=== PATIENT | male | born 1940 | race Hispanic/Latino ===

== ENCOUNTER 2017-05-01 01:30 | Emergency (ER) | payer MEDICARE ==
[2017-05-01 01:51] VITALS: BMI 26.2
--- NOTE | 2017-05-01 02:06 | ED PDOC ---
HPI: General Adult Time Seen by Provider: 05/01/17 01:46 Chief Complaint (Nursing): Chest Pain Chief Complaint (Provider): Constipation History Per: Patient History/Exam Limitations: no limitations Onset/Duration Of Symptoms: Days (x1) Current Symptoms Are (Timing): Gone Now Additional History Per: Family Additional Complaint(s): Lyndon Montiel is a 77 y/o male who was brought to the ED after he became pale and diaphoretic while attempting a bowel movement. Patient notes he felt his abdomen was distended earlier, and he subsequently had 3 consecutive bowel movements. While having the third bowel movement, his noticed he became pale. Patient states symptoms have completely resolved. He denies any chest pain, nausea, vomiting, or shortness of breath. PMD: Provider NAIMA Past Medical History Reviewed: Historical Data, Nursing Documentation, Vital Signs Vital Signs: Last Vital Signs Temp 97.6 F 05/01/17 02:10 Pulse 92 H 05/01/17 03:47 Resp 18 05/01/17 03:41 BP 124/72 05/01/17 03:47 Pulse Ox 98 05/01/17 03:41 - Medical History PMH: CAD, HTN, Hyperlipidemia Denies: HIV, Chronic Kidney Disease - Surgical History Surgical History: Appendectomy, Coronary Stent (x1) - Family History Family History: States: No Known Family Hx - Social History Current smoker - smoking cessation education provided: No Alcohol: None Drugs: Denies - Home Medications Home Medications: Ambulatory Orders Medication Instructions Recorded Aspirin [Aspirin EC] 81 mg PO DAILY 01/18/15 Lisinopril [Zestril] 5 mg PO DAILY 01/18/15 Multivitamin [Multi-Vitamin Daily] 1 tab PO DAILY 11/20/15 - Allergies Allergies/Adverse Reactions: Allergies Allergy/AdvReac Type Severity Reaction Status Date / Time No Known Allergies Allergy Verified 11/20/15 13:00 Review of Systems ROS Statement: Except As Marked, All Systems Reviewed And Found Negative Cardiovascular: Positive for: Other (Diaphoresis, Pallor). Negative for: Chest Pain Respiratory: Negative for: Shortness of Breath Gastrointestinal: Positive for: Constipation. Negative for: Nausea, Vomiting Physical Exam - Reviewed Nursing Documentation Reviewed: Yes Vital Signs Reviewed: Yes - Physical Exam Appears: Positive for: Non-toxic, No Acute Distress Head Exam: Positive for: ATRAUMATIC, NORMOCEPHALIC Skin: Positive for: Normal Color, Warm, Dry. Negative for: Pallor Eye Exam: Positive for: EOMI, Normal appearance, PERRL Neck: Positive for: Normal, Painless ROM, Supple Cardiovascular/Chest: Positive for: Regular Rate, Rhythm. Negative for: Murmur Respiratory: Positive for: Normal Breath Sounds. Negative for: Accessory Muscle Use, Respiratory Distress Gastrointestinal/Abdominal: Positive for: Normal Exam, Soft. Negative for: Tenderness Back: Positive for: Normal Inspection. Negative for: L CVA Tenderness, R CVA Tenderness, Vertebral Tenderness Extremity: Positive for: Normal ROM, Capillary Refill (< 2 sec). Negative for: Pedal Edema, Deformity Neurologic/Psych: Positive for: Alert, Oriented. Negative for: Motor/Sensory Deficits - Laboratory Results Result Diagrams: 05/01/17 02:11 05/01/17 02:48 - ECG ECG: Positive for: Interpreted By Me, Viewed By Vt ECG Rhythm: Positive for: Sinus Rhythm, Nonspecific Changes (ST) Rate: 61 - Radiology X-Ray: Interpreted by Me, Viewed By Vt X-Ray Interpretation: No Acute Disease Medical Decision Making Medical Decision Making: Time: 1:50 Initial Impression: 77 year old male brought for evaluation of episode of diaphoresis and pallor in setting of strenuous bowel movement Initial Plan: --EKG --CMP --Troponin I --CBC w/ differentials --PTT --Prothrombin time --Chest x-ray --Pending reevaluation EKG shows normal sinus rhythm at [address] changes. Labs reviewed and revealed no clinically significant abnormalities. Chest x-ray is normal. Time: 3:39 Patient is medically stable for discharge home. Counseling was provided and all questions were answered regarding diagnosis and need for follow up with PMD. There is agreement to discharge plan. Return if symptoms persist or worsen. Scribe Attestation: Documented by Minerva Arellano, acting as a scribe for Fred Stokes MD Provider Scribe Attestation: All medical record entries made by the Scribe were at my direction and personally dictated by me. I have reviewed the chart and agree that the record accurately reflects my personal performance of the history, physical exam, medical decision making, and the department course for this patient. I have also personally directed, reviewed, and agree with the discharge instructions and disposition. Disposition - Clinical Impression Clinical Impression: Vagal reaction - Patient ED Disposition Is Patient to be Admitted: No Counseled Patient/Family Regarding: Studies Performed, Diagnosis, Need For Followup, Rx Given - Disposition Referrals: Papo Biggs MD [Primary Care Provider] - Disposition: Routine/Home Disposition Time: 03:39 Condition: STABLE Forms: [facility] (Afghan)
[2017-05-01 02:12] VITALS: RESP 18; TEMP 97.6; O2SAT 98
[2017-05-01 02:15] LABS: BASO # 0.1 K/uL (0.0-0.2); BASO % 0.6 % (0.0-2.0); EOS # 0.1 K/uL (0.0-0.7); EOS % 1.6 % (0.0-4.0); HEMATOCRIT 48.8 % (35.0-51.0); LYMPH # 1.6 K/uL (1.0-4.3); LYMPH % 19.7 % (20.0-40.0); MEAN CELL VOLUME 95.1 fl (80.0-94.0); MEAN CORPUSCULAR HEMOGLOBIN 31.7 pg (27.0-31.0); MEAN CORPUSCULAR HGB CONC 33.3 g/dL (33.0-37.0); MEAN PLATELET VOLUME 9.7 fl (7.2-11.7); MONO # 0.5 K/uL (0.0-0.8); MONO % 6.3 % (0.0-10.0); NEUT # 5.8 K/uL (1.8-7.0); NEUT % 71.8 % (50.0-75.0); NRBC % 0.1 % (0.0-0.0); RED CELL DISTRIBUTION WIDTH 13.3 % (11.5-14.5); WHITE BLOOD COUNT 8.1 K/uL (4.8-10.8)
[2017-05-01 03:05] LABS: ALB/GLOB RATIO 1.4 (1.0-2.1); ALKALINE PHOSPHATASE 53 U/L (38-126); ALT/SGPT 43 U/L (21-72); AST/SGOT 31 U/L (17-59); BILIRUBIN,TOTAL 0.4 mg/dl (0.2-1.3); BLOOD UREA NITROGEN 20 mg/dl (9-20); CALCIUM 8.4 mg/dL (8.4-10.2); CARBON DIOXIDE 25 mmol/L (22-30); CHLORIDE 100 mmol/L (98-107); GFR AFRICAN-AMERICAN > 60; GLUCOSE,RANDOM 136 mg/dL (75-110); POTASSIUM 4.1 MMOL/L (3.6-5.0); SODIUM 134 mmol/l (132-148); TOTAL PROTEIN 6.5 G/DL (6.3-8.2)
[2017-05-01 03:13] LABS: PARTIAL THROMBOPLASTIN TIME 25.3 Seconds (25.6-37.1)
[2017-05-01] MEDS ORDERED: Alum-Mag Hydrox-Simethicone Susp (30 mL) ONE (03:35)
[2017-05-01] MEDS ORDERED: Alum-Mag Hydrox-Simethicone Susp (30 mL) PO STA (03:35)
[2017-05-01 03:41] VITALS: BP 124/72
[2017-05-01 04:30] VITALS: PULSE 61
--- NOTE | 2017-05-01 09:52 | RAD ---
HISTORY: chest pain COMPARISON: Chest radiograph dated 11/20/2015 FINDINGS: LUNGS: No active pulmonary disease. PLEURA: No significant pleural effusion identified, no pneumothorax apparent. CARDIOVASCULAR: Normal. OSSEOUS STRUCTURES: Unchanged. VISUALIZED UPPER ABDOMEN: Normal. OTHER FINDINGS: None. IMPRESSION: No active disease.
--- NOTE | 2017-05-01 12:14 | CARD ---
APPROVED REPORT EKG Measurement Heart [id number] <Conclusion> Normal sinus rhythm Anteroseptal infarct, age undetermined Abnormal ECG
== END 2017-05-01 03:49 | disposition home or self-care (01) ==
LOC: H.ER 01:30
DX: R42 Dizziness and giddiness (principal); K59.00 Constipation, unspecified; E78.5 Hyperlipidemia, unspecified; I10 Essential (primary) hypertension; I25.10 Atherosclerotic heart disease of native coronary artery without angina pectoris; Z79.82 Long term (current) use of aspirin; Z95.5 Presence of coronary angioplasty implant and graft

== ENCOUNTER 2017-06-09 07:28 | Emergency (ER) | payer MEDICARE ==
[2017-06-09 07:37] VITALS: BMI 29.2
--- NOTE | 2017-06-09 07:41 | ED PDOC ---
HPI: Neurologic - General Time Seen by Provider: 06/09/17 07:31 Chief Complaint (Nursing): Weakness/Neurological Deficit Source: patient, family - History of Present Illness Timing/Duration: other (awaoke with sx noticed approx 40 minutes ago) Severity: moderate Associated Symptoms: slurred speech, weakness (right arm) Allergies/Adverse Reactions: Allergies No Known Allergies Allergy (Verified 11/20/15 13:00) Home Medications: Ambulatory Orders Aspirin [Aspirin EC] 81 mg PO DAILY 01/18/15 Lisinopril [Zestril] 5 mg PO DAILY 01/18/15 Dicyclomine [Bentyl] 10 mg PO BID 06/09/17 Additional Complaint(s): per pt awoke with slurred speech, right sided weakness no prev sx no trauma , states mild constipation that last 2 days cards damle. pt was last seen nml last night pt awoke and went to the bathroom but the noticed he had trouble walking, slurred speech he then went back to bed. the then reexamined and noticed right arm weakness and slurred speech and called ems, no prev sx NIHSS Stroke Scale - Date/Time Evaluation Performed Time Performed: 07:42 When Was NIHSS Performed: Baseline - How Severe is the Stroke Level of Consciousness: 0=Alert LOC to Questions: 0=Both comments correct LOC to commands: 0=Obeys both correctly Best Gaze: 0=Normal Visual: 0=No visual loss Facial: 2=Partial (lower face paralysis) Motor Arm - Left: 0=No drift Motor Arm - Right: 1=Drift noted before 10 sec Motor Leg - Left: 0=No drift Motor Leg - Right: 0=No drift Limb Ataxia: 0=Absent Sensory: 1=Mild to moderate loss Best Language: 1=Mild to moderate aphasia Dysarthia: 1=Mild to moderate slurring Extinction & Inattention (Neglect): 0=Normal, no object Score: 6 NIHSS Stroke Scale 2 - Date/Time Evaluation Performed Time Performed: 10:30 When Was NIHSS Performed: Re-evaluation - How Severe is the Stroke Level of Consciousness: 1=Drowsy LOC to Questions: 0=Both comments correct LOC to commands: 0=Obeys both correctly Best Gaze: 1=Partial gaze palsy Visual: 0=No visual loss Facial: 2=Partial (lower face paralysis) Motor Arm - Left: 0=No drift Motor Arm - Right: 3=No effort against gravity (falls immediately) Motor Leg - Left: 0=No drift Motor Leg - Right: 2=Falls before 5 sec Limb Ataxia: 0=Absent Sensory: 1=Mild to moderate loss Best Language: 2=Severe aphasia Dysarthia: 2=Severe, near unintelligible or worse Extinction & Inattention (Neglect): 0=Normal, no object Score: 14 Past Medical History Reviewed: Historical Data, Nursing Documentation, Vital Signs Vital Signs: Last Vital Signs Temp 97.5 F L 06/09/17 07:35 Pulse 75 06/09/17 07:35 Resp 18 06/09/17 07:35 BP 151/97 H 06/09/17 07:35 Pulse Ox 98 06/09/17 07:35 - Medical History PMH: CAD, HTN, Hyperlipidemia Denies: HIV, Chronic Kidney Disease - Surgical History Surgical History: Appendectomy, Coronary Stent (x1) - Family History Family History: States: Unknown Family Hx - Living Arrangements Living Arrangements: With Family - Social History Current smoker - smoking cessation education provided: No - Home Medications Home Medications: Ambulatory Orders Medication Instructions Recorded Aspirin [Aspirin EC] 81 mg PO DAILY 01/18/15 Lisinopril [Zestril] 5 mg PO DAILY 01/18/15 Dicyclomine [Bentyl] 10 mg PO BID 06/09/17 - Allergies Allergies/Adverse Reactions: Allergies Allergy/AdvReac Type Severity Reaction Status Date / Time No Known Allergies Allergy Verified 11/20/15 13:00 Review of Systems ROS Statement: Except As Marked, All Systems Reviewed And Found Negative Constitutional: Negative for: Fever, Chills Cardiovascular: Negative for: Chest Pain, Palpitations, Light Headedness Respiratory: Negative for: Cough, Shortness of Breath Gastrointestinal: Positive for: Constipation. Negative for: Nausea, Vomiting, Abdominal Pain Neurological: Positive for: Weakness, Change in Speech, Confusion, Altered Mental Status. Negative for: Incoordination, Headache, Dizziness Physical Exam - Reviewed Nursing Documentation Reviewed: Yes Vital Signs Reviewed: Yes - Physical Exam Appears: Positive for: In Acute Distress (mod) Head Exam: Positive for: ATRAUMATIC, NORMAL INSPECTION, NORMOCEPHALIC Eye Exam: Positive for: Normal appearance, EOMI, PERRL. Negative for: Periorbital swelling, Periorbital tenderness, Conjunctival injection, Scleral icterus Neck: Positive for: Normal, Painless ROM, Supple. Negative for: Decreased ROM, Limited ROM, Trachea Midline, Pain On Movement Of Neck Cardiovascular/Chest: Positive for: Regular Rate, Rhythm. Negative for: Chest Non Tender, Edema, Gallop, Murmur, Bradycardia, Tachycardia Respiratory: Positive for: Normal Breath Sounds. Negative for: Decreased Breath Sounds, Accessory Muscle Use, Rales, Rhonchi, Stridor, Wheezing, Respiratory Distress Pulses-Radial (L): 2+ Pulses-Radial (R): 2+ Gastrointestinal/Abdominal: Positive for: Normal Exam, Bowel Sounds, Soft. Negative for: Tenderness Back: Positive for: Normal Inspection. Negative for: L CVA Tenderness, R CVA Tenderness Extremity: Positive for: Normal ROM. Negative for: Tenderness, Pedal Edema, Calf Tenderness, Deformity, Swelling Neurologic/Psych: Positive for: Alert, cooperative manager II-XII, Oriented, Motor/Sensory Deficits (right sided arm weakness 4/5), Aphasia (mild). Negative for: Facial Droop - Laboratory Results Result Diagrams: 06/09/17 07:50 06/09/17 08:32 - ECG ECG: Positive for: Interpreted By Sd ECG Rhythm: Positive for: Normal QRS, Normal ST Segment, Sinus Rhythm (67), ST/ T Changes (twi in v2 through v6) O2 Sat by Pulse Oximetry: 98 Pulse Ox Interpretation: Normal - Radiology X-Ray: Interpreted by Sd X-Ray Interpretation: No Acute Disease - Progress ED Course And Treament: code stroke called within 5 mi nutes of arrival, called dr mack. pt not a tpa candidate due to unknown time of onset. 815am contacted neurological associated, advise cta and will call back with results. [address] estes neuorointervention agree's to transfer to [facility] for neuro intervention given the cta finding of an acute left sided mca thrombus, family agree;s with plan, pt tolerating oral secretions and his ariway those jhis sx are worsening. discussed with Dr barone pt to be and er to er transfer. Re-evaluation Time: 07:59 Condition: Improved - Critical Care Total Time (In Min): 60 Documented Critical Care: Time excludes all time spent performint seperately billable procedures Medical Decision Making Medical Decision Makin am cta revealed acute left mca stroke pt exam worsening here, per Dr macias will transport to [facility] er to er transfer for possible thrombectomy he will accept. discussed with dr still [phone] neurology as well. repeat nihss shows acute worsening discussed plans with family and they agree with plan. Disposition - Clinical Impression Clinical Impression: Acute ischemic left MCA stroke Counseled Patient/Family Regarding: Studies Performed, Diagnosis, Need For Followup - Disposition Disposition: Other Institution ([facility]) Disposition Time: 10:30 Condition: CRITICAL Forms: [facility] (Yoruba)
--- NOTE | 2017-06-09 08:02 | CT ---
EXAM: CT Head Without Intravenous Contrast EXAM DATE/TIME: 06/09/2017 7:36 AM CLINICAL HISTORY: 77 years old, male; Pain; Headache; Tension; Additional info: Code stroke TECHNIQUE: Axial computed tomography images of the head/brain without intravenous contrast. All CT scans at this facility use one or more dose reduction techniques, viz.: automated exposure control; ma/kV adjustment per patient size (including targeted exams where dose is matched to indication; i.e. head); or iterative reconstruction technique. Coronal and sagittal reformatted images were created and reviewed. COMPARISON: No relevant prior studies available. FINDINGS: Brain: Mild cerebellar and cerebral atrophy. No hemorrhage. No significant white matter disease. Ventricles: Unremarkable. No ventriculomegaly. Bones/joints: Unremarkable. No acute fracture. Soft tissues: Unremarkable. Sinuses: Unremarkable as visualized. No acute sinusitis. Mastoid air cells: Unremarkable as visualized. No mastoid effusion. IMPRESSION: No acute cerebral hemorrhage or edema.
[2017-06-09 08:08] LABS: BASO % 0.8 % (0.0-2.0); EOS # 0.3 K/uL (0.0-0.7); EOS % 5.2 % (0.0-4.0); HEMOGLOBIN 16.6 g/dL (12.0-18.0); LYMPH # 1.8 K/uL (1.0-4.3); LYMPH % 35.7 % (20.0-40.0); MEAN CELL VOLUME 94.4 fl (80.0-94.0); MEAN CORPUSCULAR HEMOGLOBIN 31.6 pg (27.0-31.0); MEAN CORPUSCULAR HGB CONC 33.5 g/dL (33.0-37.0); MEAN PLATELET VOLUME 9.5 fl (7.2-11.7); MONO # 0.4 K/uL (0.0-0.8); MONO % 8.4 % (0.0-10.0); NEUT # 2.5 K/uL (1.8-7.0); NEUT % 49.9 % (50.0-75.0); NRBC % 0.2 % (0.0-0.0); RBC 5.24 Mil/uL (4.40-5.90)
[2017-06-09 08:15] LABS: INR 1.1 (0.9-1.2); PARTIAL THROMBOPLASTIN TIME 28.9 Seconds (25.6-37.1); PROTHROMBIN TIME 12.1 Seconds (9.8-13.1)
--- NOTE | 2017-06-09 08:47 | CARD ---
APPROVED REPORT EKG Measurement Heart [id number] NV [id number] <Conclusion> Normal sinus rhythm Inferior infarct, age undetermined Anterior infarct, age undetermined Abnormal ECG
[2017-06-09 09:02] LABS: ALB/GLOB RATIO 1.3 (1.0-2.1); ALBUMIN 3.6 g/dL (3.5-5.0); ALT/SGPT 41 U/L (21-72); AST/SGOT 21 U/L (17-59); BLOOD UREA NITROGEN 16 mg/dl (9-20); CALCIUM 8.9 mg/dL (8.4-10.2); GFR AFRICAN-AMERICAN > 60; GFR NON-AFRICAN AMERICAN > 60; HDL CHOLESTEROL 35 MG/DL (30-70)
[2017-06-09 09:13] LABS: LDL CHOLESTEROL 92 mg/dL (0-129)
[2017-06-09 09:22] LABS: B-TYPE NATRIURETIC PEPTIDE 133 pg/ml (0-900)
[2017-06-09] MEDS ORDERED: Iodixanol 320 MG/ML 100 ML BOTTLE IV ONE (09:24)
[2017-06-09] MEDS ORDERED: Sodium Chloride 0.9% 50 ML IV ONE (09:24)
--- NOTE | 2017-06-09 10:46 | CT ---
PROCEDURE: CTA HEAD AND NECK WITH CONTRAST HISTORY: right sided weakness r/o large vessel thrombus COMPARISON: None available. TECHNIQUE: Initial noncontrast head CT was performed. Subsequently, CT angiogram of the head and neck were performed after the intravenous administration of 80 mL of Omnipaque 350. Contiguous 1.5mm thick images were obtained in the axial plane of the neck. 2-D coronal and sagittal MPR images were obtained. Imaging postprocessing was performed with 3-D images also obtained. A delayed contrast head CT was also obtained. This CT exam was performed using one or more of the following dose reduction techniques: Automated exposure control, adjustment of the mA and/or kV according to patient size, and/or use of iterative reconstruction technique. Contrast dose: 99 cc Visipaque 320 Radiation dose: Total exam DLP = 599.51 mGy-cm. FINDINGS: HEAD: Right: The intracranial internal carotid artery, and anterior and middle cerebral arteries are widely patent. Left: There is complete occlusion of the left middle cerebral artery about 5 mm distal to its origin. There is absent flow in the M2 segment and distal sylvian branches. The intracranial internal carotid artery and anterior cerebral artery arteries are widely patent. Posterior circulation: The visualized intracranial vertebral arteries, basilar artery and posterior cerebral arteries are widely patent. Ther is no endoluminal filling defect to suggest thrombus. There is no intracranial saccular aneurysm. There is no abnormal enhancement on the postcontrast CT. NECK: There is a 2 vessel aortic arch with common origin of the innominate and left common carotid artery is. There is no stenosis at the origins of the great vessels at the level of the aortic arch. Right Carotid: On the right, the common carotid, internal carotid and external carotid arteries are widely patent. There is no hemodynamically significant stenosis in the internal carotid arteries. Left Carotid: On the left, the common carotid, internal carotid and external carotid arteries are widely patent. There are minimal atherosclerotic calcifications in the left carotid bulb.There is no hemodynamically significant stenosis in the internal carotid arteries. The vertebral arteries are widely patent. The right vertebral artery is dominant, an anatomic variant. The visualized soft tissues of the neck are normal. The visualized brain and cervical spine are within normal limits. The lung apices are clear. IMPRESSION: 1. Complete occlusion of the left middle cerebral artery (M1 segment) about 5 mm distal to its origin with absent flow in the M2 segment and distal sylvian branches. 2. Bilateral intracranial internal carotid arteries, right middle cerebral artery, bilateral anterior cerebral arteries, posterior cerebral and vertebral arteries are widely patent. 3. No evidence of hemodynamically significant stenosis in the extracranial internal carotid arteries. 4. Patent bilateral cervical segments of vertebral arteries. The right vertebral artery is dominant, an anatomic variant. Critical findings were discussed with Dr. Luca Huber on 06/09/2017 at 10:35 a.m.
--- NOTE | 2017-06-09 11:40 | RAD ---
HISTORY: weak COMPARISON: 05/01/2017. FINDINGS: LUNGS: The lungs are clear. PLEURA: No significant pleural effusion identified, no pneumothorax apparent. CARDIOVASCULAR: Normal. OSSEOUS STRUCTURES: No significant abnormalities. VISUALIZED UPPER ABDOMEN: Normal. OTHER FINDINGS: None. IMPRESSION: No active pulmonary disease.
[2017-06-09 12:44] VITALS: BP 125/65; PULSE 71; RESP 16; TEMP 97.9
[2017-06-09 14:06] VITALS: O2SAT 98
== END 2017-06-09 12:00 | disposition short-term general hospital (02) ==
LOC: H.ER 07:28
DX: I63.512 Cerebral infarction due to unspecified occlusion or stenosis of left middle cerebral artery (principal); E78.5 Hyperlipidemia, unspecified; I25.10 Atherosclerotic heart disease of native coronary artery without angina pectoris; Z79.82 Long term (current) use of aspirin; Z95.5 Presence of coronary angioplasty implant and graft
CPT/HCPCS: 70450; 70496; 70498; 71045; 80053; 80061; 82948; 83036; 83880; 84484; 85025; 85610; 85730; 86850; 86900; 93005; 99285; Q9967

== ENCOUNTER 2017-08-14 09:46 | Emergency (ER) | payer MEDICARE ==
[2017-08-14 09:46] VITALS: BMI 26.2
[2017-08-14 10:18] VITALS: RESP 18; TEMP 97
--- NOTE | 2017-08-14 10:33 | ED PDOC ---
HPI: Neurologic - General Time Seen by Provider: 08/14/17 10:09 Chief Complaint (Nursing): Dizziness/Lightheaded - History of Present Illness Allergies/Adverse Reactions: Allergies No Known Allergies Allergy (Verified 11/20/15 13:00) Home Medications: Ambulatory Orders Aspirin [Aspirin EC] 81 mg PO DAILY 01/18/15 Lisinopril [Zestril] 5 mg PO DAILY 01/18/15 Dicyclomine [Bentyl] 10 mg PO BID 06/09/17 Ondansetron [Zofran] 4 mg PO Q8H PRN #6 tab 08/14/17 Additional Complaint(s): 77yo M with PMHx HLD, [place], CVA c/o dizziness, lightheadedness. started this AM, now improving. Tolerating PO. Denies facial droop, weakness, slurred speech, fall, vision change. No sick contacts, no recent illness. Recent CVA 06/2017 with Left MCA occlusion s/p thrombectomy at [facility]. Taking ASA, Plavix and statin. PCP: Dr. Hernandez Past Medical History Vital Signs: Last Vital Signs Temp 97 F L 08/14/17 10:09 Pulse 73 08/14/17 10:09 Resp 18 08/14/17 10:09 BP 154/80 H 08/14/17 10:09 Pulse Ox 97 08/14/17 10:09 - Medical History PMH: CAD, HTN, Hyperlipidemia Denies: HIV, Chronic Kidney Disease - Surgical History Surgical History: Appendectomy, Coronary Stent (x1) - Family History Family History: States: Unknown Family Hx - Home Medications Home Medications: Ambulatory Orders Medication Instructions Recorded Aspirin [Aspirin EC] 81 mg PO DAILY 01/18/15 Lisinopril [Zestril] 5 mg PO DAILY 01/18/15 Dicyclomine [Bentyl] 10 mg PO BID 06/09/17 Ondansetron [Zofran] 4 mg PO Q8H PRN #6 tab 08/14/17 - Allergies Allergies/Adverse Reactions: Allergies Allergy/AdvReac Type Severity Reaction Status Date / Time No Known Allergies Allergy Verified 11/20/15 13:00 Review of Systems ROS Statement: Except As Marked, All Systems Reviewed And Found Negative Neurological: Positive for: Dizziness Physical Exam - Reviewed Nursing Documentation Reviewed: Yes Vital Signs Reviewed: Yes - Physical Exam Appears: Positive for: Non-toxic, No Acute Distress Head Exam: Positive for: ATRAUMATIC, NORMAL INSPECTION Skin: Positive for: Warm, Dry Eye Exam: Positive for: EOMI, PERRL ENT: Positive for: Normal ENT Inspection. Negative for: Pharyngeal Erythema, Tonsillar Exudate Neck: Positive for: Normal, Painless ROM, Supple Cardiovascular/Chest: Positive for: Regular Rate, Rhythm, Chest Non Tender Respiratory: Positive for: Normal Breath Sounds. Negative for: Decreased Breath Sounds Gastrointestinal/Abdominal: Positive for: Soft Back: Positive for: Normal Inspection Extremity: Positive for: Normal ROM Lymphatic: Negative for: Adenopathy Neurologic/Psych: Positive for: Alert, pier master assistant II-XII, Oriented, Gait (WNL). Negative for: Motor/Sensory Deficits, Cerebellar Tests, Aphasia, Facial Droop Comments: NIHSS 0 - Laboratory Results Result Diagrams: 08/14/17 11:57 08/14/17 11:57 - ECG O2 Sat by Pulse Oximetry: 97 Medical Decision Making Medical Decision Makin DDx h/o CVA, [place] EKG no acute change CT head wo cont reassessment 1142 CT head wo cont NS 150cc/hr meclizine 12.5mg PO x1 CBC, BMP 1423 improved, dizziness resolved FU PCP Thursday Disposition - Clinical Impression Clinical Impression: Dizziness - Disposition Referrals: Papo Biggs MD [Family Provider] - Disposition Time: 14:23 Condition: STABLE Prescriptions: Ondansetron [Zofran] 4 mg PO Q8H PRN #6 tab PRN Reason: Nausea/Vomiting Instructions: Dizziness, Nonvertigo, (DC) Forms: [employer] (Swiss)
--- NOTE | 2017-08-14 11:12 | CT ---
PROCEDURE: CT HEAD WITHOUT CONTRAST. HISTORY: weakness COMPARISON: 06/09/2017 TECHNIQUE: Axial computed tomography images were obtained through the head/brain without intravenous contrast. Radiation dose: Total exam DLP = 849.56 mGy-cm. This CT exam was performed using one or more of the following dose reduction techniques: Automated exposure control, adjustment of the mA and/or kV according to patient size, and/or use of iterative reconstruction technique. FINDINGS: HEMORRHAGE: No intracranial hemorrhage. BRAIN: No mass effect or edema. Extensive encephalomalacia in the left frontal, temporal and parietal lobes all within MCA territory distribution, consistent with old left MCA infarct. This was not evident on prior CT examination of 06/09/2017, but is consistent with previously demonstrated left middle cerebral artery occlusion on CTA of 06/09/2017. There is no evidence of acute infarct. VENTRICLES: Unremarkable. No hydrocephalus. CALVARIUM: Unremarkable. PARANASAL SINUSES: Unremarkable as visualized. No significant inflammatory changes. MASTOID AIR CELLS: Unremarkable as visualized. No inflammatory changes. OTHER FINDINGS: None. IMPRESSION: Old large left MCA territory infarct. No evidence of acute infarct. No intracranial mass or hemorrhage.
[2017-08-14] MEDS ORDERED: Sodium Chloride 0.9% 500 ML IV ONE (11:45)
[2017-08-14 12:02] LABS: BASO % 0.6 % (0.0-2.0); EOS % 0.3 % (0.0-4.0); HEMOGLOBIN 16.3 g/dL (12.0-18.0); LYMPH # 0.6 K/uL (1.0-4.3); LYMPH % 8.4 % (20.0-40.0); MEAN CELL VOLUME 93.4 fl (80.0-94.0); MEAN CORPUSCULAR HEMOGLOBIN 31.6 pg (27.0-31.0); MEAN CORPUSCULAR HGB CONC 33.9 g/dL (33.0-37.0); MEAN PLATELET VOLUME 9.6 fl (7.2-11.7); MONO # 0.2 K/uL (0.0-0.8); NEUT % 87.7 % (50.0-75.0); NRBC % 0.1 % (0.0-0.0); PLATELET COUNT 204 K/uL (130-400); RBC 5.17 Mil/uL (4.40-5.90); RED CELL DISTRIBUTION WIDTH 13.5 % (11.5-14.5); WHITE BLOOD COUNT 6.8 K/uL (4.8-10.8)
[2017-08-14 12:15] LABS: BLOOD UREA NITROGEN 20 mg/dl (9-20); GFR AFRICAN-AMERICAN > 60; GFR NON-AFRICAN AMERICAN > 60
[2017-08-14 12:36] LABS: BANDS 4 % (0-2); LYMPHOCYTE 10 % (20-50); MONOCYTE 4 % (0-10); NEUTROPHIL 82 % (42-75); PLATELET ESTIMATE NORMAL (NORMAL); TOTAL CELLS COUNTED 100
[2017-08-14 12:37] LABS: ANISOCYTOSIS SLIGHT; LARGE PLATELETS PRESENT
[2017-08-14 14:51] VITALS: BP 133/73; PULSE 90; O2SAT 99
== END 2017-08-14 14:45 | disposition home or self-care (01) ==
LOC: H.ER 09:46
DX: R42 Dizziness and giddiness (principal); E78.5 Hyperlipidemia, unspecified; I10 Essential (primary) hypertension; I25.10 Atherosclerotic heart disease of native coronary artery without angina pectoris; Z79.82 Long term (current) use of aspirin; Z86.73 Personal history of transient ischemic attack (TIA), and cerebral infarction without residual deficits; Z95.5 Presence of coronary angioplasty implant and graft
CPT/HCPCS: 70450; 80048; 82948; 85025; 99285; J7040

== ENCOUNTER 2017-11-25 14:55 | Emergency (ER) | payer MEDICARE ==
[2017-11-25 14:55] VITALS: BMI 26.2
[2017-11-25 15:15] LABS: VENOUS BLOOD GAS PCO2 60 mmHg (40-60); VENOUS BLOOD GAS PO2 34 mm/Hg (30-55); VENOUS BLOOD PH 7.33 (7.32-7.43)
--- NOTE | 2017-11-25 15:16 | ED PDOC ---
HPI: Altered Mental Status Time Seen by Provider: 11/25/17 15:02 Chief Complaint (Nursing): Altered Mental Status Chief Complaint (Provider): Altered Mental Status History Per: Patient Onset/Duration Of Symptoms: Hrs ([employer]) Additional Complaint(s): 77 year old male with a history of CAD, HTN, hyperlipidemia, and stroke in June 2017 was brought in via EMS presents to the ED with altered mental status possible stroke. As per family, he was at a gathering when all of a sudden he closed his eyes and leaned back. Family noticed his eyes were fluttering and he was unable to speak. Family member called family friend who is a radio electronics officer who came and called the ambulance. On arrival, patient was lying supine with his arms crossed across his chest. He had no obvious weakness and his eyes closed. Patient responded properly to name and knew his age and time. He was able to follow commands to open and close eyes, open and close fists, and push feet down. Patient denies any other medical complaints or injuries. PMD: Dr. Biggs Past Medical History Reviewed: Historical Data, Nursing Documentation, Vital Signs - Medical History PMH: CAD, HTN, Hyperlipidemia Denies: HIV, Chronic Kidney Disease - Surgical History Surgical History: Appendectomy, Coronary Stent (x1) - Family History Family History: States: Unknown Family Hx - Home Medications Home Medications: Ambulatory Orders Medication Instructions Recorded Aspirin [Aspirin EC] 81 mg PO DAILY 01/18/15 Atorvastatin [Lipitor] 80 mg PO HS 11/25/17 Clopidogrel [Plavix] 75 mg PO DAILY 11/25/17 LORazepam [Ativan] 0.5 mg PO Q8 PRN 11/25/17 Latanoprost [Xalatan] 1 drop EACHEYE HS 11/25/17 Lisinopril [Zestril] 5 mg PO DAILY 11/25/17 Multivitamin [Multi-Vitamin Daily] 1 tab PO DAILY 11/25/17 Sertraline [Zoloft] 25 mg PO HS 11/25/17 Timolol 0.5% Ophth [Timoptic 0.5% 1 drop LEFTEYE Q12 11/25/17 Ophth Soln] - Allergies Allergies/Adverse Reactions: Allergies Allergy/AdvReac Type Severity Reaction Status Date / Time No Known Allergies Allergy Verified 11/20/15 13:00 Review of Systems ROS Statement: Except As Marked, All Systems Reviewed And Found Negative Neurological: Positive for: Altered Mental Status Physical Exam - Reviewed Nursing Documentation Reviewed: Yes Vital Signs Reviewed: Yes - Physical Exam Appears: Positive for: Non-toxic, No Acute Distress Head Exam: Positive for: ATRAUMATIC, NORMOCEPHALIC Skin: Positive for: Normal Color, Warm, Dry Eye Exam: Positive for: Normal appearance, EOMI, PERRL, Other (no double vision) Neck: Positive for: Normal, Painless ROM, Supple Neurologic/Psych: Positive for: Alert, Oriented (x3), Other (able to open and close fists with equal strength, able to push down feet with equal strength, able to pull toes up, no speech deficits) - Laboratory Results Result Diagrams: 11/25/17 15:10 11/25/17 15:10 - ECG Pulse Ox Interpretation: Normal Medical Decision Making Medical Decision Making: Time: 15:02 Initial Impression: altered mental status Initial Plan: --VBG --CT Head --EKG --Alcohol serum --CMP --Urine drug screen --Troponin --CBC with differentials --Partial Thromboplastin Time --Prothrombin time --Glucose --Nurse noted patient was diaphoretic, rule out acute coronary syndrome Scribe Attestation: Documented by Yulisa Courtney, acting as a scribe for Denise Graves MD Provider Scribe Attestation: All medical record entries made by the Scribe were at my direction and personally dictated by me. I have reviewed the chart and agree that the record accurately reflects my personal performance of the history, physical exam, medical decision making, and the department course for this patient. I have also personally directed, reviewed, and agree with the discharge instructions and disposition. labs and imaging results reviewed with patient and his . she feels that he is having symptoms of panic attack which he has had since his heart attack and stroke. Disposition - Clinical Impression Clinical Impression: Anxiety - Patient ED Disposition Is Patient to be Admitted: No Doctor Will See Patient In The: Office Counseled Patient/Family Regarding: Diagnosis, Need For Followup - Disposition Referrals: Papo Biggs MD [Family Provider] - [facility] [Outside] Disposition: Routine/Home Disposition Time: 16:44 Condition: IMPROVED Instructions: Anxiety, Adult (DC) Forms: [employer] (Latvian) Print Language: CHINESE - POA Present On Arrival: None
[2017-11-25 15:22] LABS: BASO % 0.7 % (0.0-2.0); EOS # 0.1 K/uL (0.0-0.7); HEMOGLOBIN 15.9 g/dL (12.0-18.0); LYMPH # 1.4 K/uL (1.0-4.3); LYMPH % 27.4 % (20.0-40.0); MEAN CORPUSCULAR HEMOGLOBIN 31.5 pg (27.0-31.0); MEAN CORPUSCULAR HGB CONC 33.2 g/dL (33.0-37.0); MONO # 0.4 K/uL (0.0-0.8); MONO % 7.4 % (0.0-10.0); NEUT # 3.3 K/uL (1.8-7.0); NEUT % 63.5 % (50.0-75.0); NRBC % 0.1 % (0.0-0.0); RBC 5.03 Mil/uL (4.40-5.90); RED CELL DISTRIBUTION WIDTH 14.8 % (11.5-14.5); WHITE BLOOD COUNT 5.3 K/uL (4.8-10.8)
[2017-11-25 15:32] VITALS: TEMP 98.3
[2017-11-25 15:33] LABS: ALB/GLOB RATIO 1.4 (1.0-2.1); ALBUMIN 3.9 g/dL (3.5-5.0); ALT/SGPT 69 U/L (21-72); AST/SGOT 35 U/L (17-59); BLOOD UREA NITROGEN 17 mg/dl (9-20); CALCIUM 8.8 mg/dL (8.4-10.2); GFR AFRICAN-AMERICAN > 60; GFR NON-AFRICAN AMERICAN > 60
[2017-11-25 15:36] LABS: INR 1.1 (0.9-1.2); PARTIAL THROMBOPLASTIN TIME 27.5 Seconds (25.6-37.1); PROTHROMBIN TIME 12.4 Seconds (9.8-13.1)
--- NOTE | 2017-11-25 16:02 | CT ---
PROCEDURE: CT HEAD WITHOUT CONTRAST. HISTORY: ams COMPARISON: 08/14/2017 TECHNIQUE: Axial computed tomography images were obtained through the head/brain without intravenous contrast. Radiation dose: Total exam DLP = 784 mGy-cm. This CT exam was performed using one or more of the following dose reduction techniques: Automated exposure control, adjustment of the mA and/or kV according to patient size, and/or use of iterative reconstruction technique. FINDINGS: HEMORRHAGE: No interval intracranial hemorrhage. BRAIN: No interval mass effect or edema. The large left middle cerebral artery territory infarct with ex vacuo changes on the left frontal horn is renoted no interval infarcts are seen. Maturation changes are suggested. . VENTRICLES: Commensurate with degree of atrophy and with the left-sided ex vacuo changes suggested CALVARIUM: Unremarkable. PARANASAL SINUSES: Unremarkable as visualized. No significant inflammatory changes. MASTOID AIR CELLS: Unremarkable as visualized. No inflammatory changes. OTHER FINDINGS: None. IMPRESSION: No interval hemorrhage or mass effect. The large left middle cerebral artery territory infarct is renoted inferred ongoing maturation changes. Ex vacuo changes left lateral frontal horn volume loss compatible with some element of encephalomalacia suggested
[2017-11-25] MEDS: Alum-Mag Hydrox-Simethicone Susp (30 mL) PO ONE (16:50)
[2017-11-25] MEDS ORDERED: Alum-Mag Hydrox-Simethicone Susp (30 mL) ONE (16:57)
[2017-11-25 17:27] VITALS: BP 151/77; PULSE 56; RESP 14; O2SAT 100
--- NOTE | 2017-11-26 09:36 | CARD ---
APPROVED REPORT EKG Measurement Heart [id number] <Conclusion> Sinus bradycardia Anteroseptal infarct, age undetermined Abnormal ECG
== END 2017-11-25 17:51 | disposition home or self-care (01) ==
LOC: H.ER 14:55
DX: F41.9 Anxiety disorder, unspecified (principal); E78.5 Hyperlipidemia, unspecified; I10 Essential (primary) hypertension; I25.10 Atherosclerotic heart disease of native coronary artery without angina pectoris; Z86.73 Personal history of transient ischemic attack (TIA), and cerebral infarction without residual deficits; Z95.5 Presence of coronary angioplasty implant and graft; Z79.82 Long term (current) use of aspirin